=== PATIENT | male | born 1995 | race Caucasian/White ===

== ENCOUNTER 2017-02-01 03:42 | Emergency (ER) | payer OTHER ==
--- NOTE | 2017-02-01 04:10 | EDPHY ---
H & P Stated Complaint: pt +etoh, not sure what happened has a lac to back of head HPI/ROS: HPI CHIEF COMPLAINT: Alcohol Intoxication fall, head injury, head laceration HISTORY OF PRESENT ILLNESS: This patient 21-year-old male [employer] student, denies any medical history, presents emergency room after he fell. He presents highly intoxicated with alcohol. He states he drank multiple shots of liquor and beer this evening. States he fell backwards struck his head. Unsure on what. Unsure if he had LOC. His roommate brought into the emergency room. He has a hematoma left occiput with a laceration. Past Medical History: Denies medical history Past Surgical History: Denies surgical history Social History: Admits to large amount of alcohol this evening denies illicit drugs or tobacco. Family History: Noncontributory ROS REVIEW OF SYSTEMS: A comprehensive 10 point review of systems is otherwise negative aside from elements mentioned in the history of present illness. Exam Constitutional Intoxicated, triage nursing summary reviewed, vital signs reviewed, Sleepy, smells of alcohol Eyes normal conjunctivae and sclera, horizontal beating nystagmus consistent acute alcohol intoxication, otherwise pupils equal and react to light HENT head/neck: Left occiput shows hematoma with a 3 cm laceration present. Neck no midline tenderness or step-offs or obvious trauma. moist mucus membranes, no epistaxis, neck supple/ no meningismus, no raccoon eyes. Respiratory clear to auscultation bilaterally, normal breath sounds, no respiratory distress, no wheezing. Cardiovascular rate normal, regular rhythm, no murmur, no edema, distal pulses normal. Gastrointestinal soft, non-tender, no rebound, no guarding, normal bowel sounds, no distension, no pulsatile mass. Genitourinary no CVA tenderness. Musculoskeletal no midline vertebral tenderness, full range of motion, no calf swelling, no tenderness of extremities, no meningismus, good pulses, neurovascularly intact. Skin pink, warm, & dry, no rash, skin atraumatic. Neurologic sleepy, intoxicated with alcohol,, alert and oriented x 3, AAOx3, moves all 4 extremities equally, motor intact, sensory intact, CN II-XII intact , , normal vision, normal speech. Psychiatric normal mood/affect. Heme/Lymph/Immune no lymphadenopathy. Differential Diagnosis: Includes but is not limited to in a particular order acute alcohol intoxication, alcohol abuse, dehydration, electrolyte abnormality , nausea vomiting from acute alcohol intoxication Medical Decision Making: Plan for this patient IV establishment IV fluid bolus , IV Zofran for nausea, CT scan head without contrast for trauma given alcohol intoxication, head hematoma and laceration check serum alcohol. Re-evaluation: CT scan of the head without IV contrast for trauma. The results of the study are negative for anything acute. The study was read by Dr. Russ I viewed the images myself on the PACS system. 0511AM: Patient's serum alcohol level 211. Patient CT scan reviewed. No acute intracranial bleed or skull fracture. Laceration Repair Procedure: Verbal Consent was obtained, Under sterile conditions, The patient had lidocaine with epinephrine used approximately 4ccs to local anesthetize the Post scalp 3cmLaceration. The wound was copiously irrigated with sterile fluid, the wound was explored for foreign bodies there were none visualized, the wound was explored with a sterile glove to the base. There are no deep structures involved, including no arterial injury. FOUR [place] were placed in this patient's laceration. He had good close approximation of the wound edges. He Tolerated this well. . Patient understands have his hector removed in 7 days. Keep the wound clean dry and protected and intact. 0718AM: This patient ambulated well stable gait. Clinically sober. No ataxia. I answered all his questions. He understands he has for stools in the posterior scalp. He understands a need to be removed in 7 days. He understands keep the wound clean, protected and dry. Warm soapy water in 24 hours is fine. Source: Patient - Personal History Current Tetanus Diphtheria and Acellular Pertussis (TDAP): Yes Tetanus Vaccine Date: 2014 - Medical/Surgical History Hx Asthma: No Hx Chronic Respiratory Disease: No Hx Diabetes: No Hx Cardiac Disease: No Hx Renal Disease: No Hx Cirrhosis: No Hx Alcoholism: No Hx HIV/AIDS: No Hx Splenectomy or Spleen Trauma: No Other PMH: denies - Social History Smoking Status: Never smoked Constitutional: Initial Vital Signs Temperature (C) 36.5 C 02/01/17 03:49 Heart Rate 70 02/01/17 03:49 Respiratory Rate 18 02/01/17 03:49 Blood Pressure 138/84 H 02/01/17 03:49 O2 Sat (%) 97 02/01/17 03:49 O2 Delivery Mode Room Air Allergies/Adverse Reactions: No Known Allergies Allergy (Unverified 03/15/15 14:18) Home Medications: Medication Instructions Recorded NK [No Known Home Meds] 03/15/15 Medical Decision Making - Data Points Laboratory Results: 02/01/17 04:40 Ethyl Alcohol 225 mg/dL H mg/dL (0-10) Medications Given: Discontinued Medications Sodium Chloride (Ns) 1,000 mls @ 0 mls/hr IV ONCE ONE; Wide Open PRN Reason: Protocol Stop: 02/01/17 04:14 Last Admin: 02/01/17 04:56 Dose: 1,000 mls Ondansetron HCl (Zofran) 4 mg IVP EDNOW ONE Stop: 02/01/17 04:14 Last Admin: 02/01/17 04:56 Dose: 4 mg Departure - Departure Disposition: Home, Routine, Self-Care Clinical Impression: Alcohol intoxication Qualifiers: Complication of substance-induced condition: uncomplicated Qualified Code(s): F10.920 - Alcohol use, unspecified with intoxication, uncomplicated Scalp hematoma Qualifiers: Encounter type: initial encounter Qualified Code(s): S00.03XA - Contusion of scalp, initial encounter Scalp laceration Qualifiers: Encounter type: initial encounter Qualified Code(s): S01.01XA - Laceration without foreign body of scalp, initial encounter Condition: Good Instructions: Laceration (ED), Alcohol Intoxication (ED), Abuse of Alcohol (ED) , Contusion in Adults (ED), Staple Care (ED), Hematoma (ED) Additional Instructions: 1. Your hector need to be removed in 7 days. 2. Keep your wound clean, dry, protected and intact. Referrals: NONE *PRIMARY CARE P,. [Primary Care Provider] - As per Instructions
[2017-02-01] MEDS ORDERED: NS 1,000 ML IV ONE (04:13)
[2017-02-01] MEDS ORDERED: ONDANSETRON 4 MG/2 ML VIAL IVP ONE (04:13)
[2017-02-01 05:06] LABS: ETHANOL SERUM 225 mg/dL (0-10)
[2017-02-01 07:01] VITALS: BP 112/76; PULSE 71; RESP 16; TEMP 98.1; O2SAT 98
--- NOTE | 2017-02-01 14:42 | ASDISCHSUM ---
Discharge Information Plan Status: Medically Cleared to Leave: Discharge Date:02/01/2017 08:13 AM CM D/C Disposition: ADT D/C Disposition:Home, Routine, Self-Care Projected Discharge Date:02/01/2017 08:13 AM Transportation at D/C: Discharge Delay Reason: Follow-Up Date:02/01/2017 08:13 AM Discharge Slot: Final Diagnosis: Placement Information Patient Contact Information Contact Name:SHAE Relationship:Mother Address:[address] Work Phone: City:[facility] Phone: State/[facility] Code:[place] [address] Email: Financial Information Financial Class:HMO and PPO Plans Primary Plan Desc:[facility] Options Primary Plan Number:[id number] Secondary Plan Desc: Secondary Plan Number: Assessment Information Intervention Information
== END 2017-02-01 08:13 | disposition home or self-care (01) ==
PROC: 0HQ0XZZ Repair Scalp Skin, External Approach (ICD-10-PCS; principal; 2017-02-01)
DX: S01.01XA Laceration without foreign body of scalp, initial encounter (principal); W18.09XA Striking against other object with subsequent fall, initial encounter; E86.9 Volume depletion, unspecified; F10.920 Alcohol use, unspecified with intoxication, uncomplicated
CPT/HCPCS: 96374; G0480; J2405